=== PATIENT | male | born 1930 | race Caucasian/White ===

== ENCOUNTER 2016-07-18 09:44 | Inpatient (IN) | payer MEDICARE ==
[2016-07-18] MEDS ORDERED: POTASSIUM CHLO10 ME2 PO (09:55)
[2016-07-18] MEDS ORDERED: ZOCOR20 M1 PO (09:55)
[2016-07-18] MEDS ORDERED: TOPROL XL50 M1 PO (09:55)
[2016-07-18] MEDS ORDERED: LASIX40 M1 PO ×2 (09:55→10:53)
[2016-07-18] MEDS ORDERED: TERAZOSIN HCL10 M1 PO (09:55)
[2016-07-18] MEDS ORDERED: PROTONIX40 M2 PO (09:56)
[2016-07-18] MEDS ORDERED: CLARITIN10 M6 PO (10:20)
[2016-07-18 10:37] LABS: ABG CO2 ARTERIAL 30 mmol/L (21-27); ARTERIAL BLD GAS O2 SATURATION 88 % (95-98); ARTERIAL BLOOD GAS PCO2 44 mmHg (32-45); ARTERIAL PO2 54 mmHg (70-100); BICARBONATE 29 mmol/L (21-28); BLOOD GAS BASE EXCESS 4 mM/L (-/+3); PH 7.43 Units (7.35-7.45)
[2016-07-18 10:41] LABS: BASO % 0.5 % (0-2); BASO ABSOLUTE COUNT 0.1 tho/cmm (0.0-0.2); EOS % 2.1 % (0-7); EOSINOPHIL ABSOLUTE COUNT 0.2 tho/cmm (0.0-0.7); HCT-HEMATOCRIT 35.5 % (36.0-53.5); HGB-HEMOGLOBIN 11.1 gm/dl (13.5-17.0); IMMATURE GRANULOCYTES ABSOLUTE 0.04 tho/cmm (0-0.03); IMMATURE GRANULOCYTES PERCENT 0.4 % (0-0.3); LYMPH % 6.8 % (20-45); LYMPH ABSOLUTE COUNT 0.7 tho/cmm (0.8-4.5); MCHC MEAN CORPUSCULAR HGB CONC 31.3 % (32.0-36.0); MCV (MEAN CELL VOLUME) 95.9 fl (82.0-96.0); MEAN PLATELET VOLUME 9.5 cmc (9.4-12.4); MONO % 10.5 % (0-12); NEUTROPHIL ABSOLUTE COUNT 7.9 tho/cmm (1.6-8.0); NEUTROPHIL-AUTOMATED 7.9 tho/cmm (1.6-8.0); NEUTROPHILS % 79.7 % (40-80); PLATELET COUNT 206 tho/cmm (150-450); WHITE BLOOD COUNT 9.9 tho/cmm (4.0-10.0)
[2016-07-18] MEDS ORDERED: ONE DAILY COMP1 EAC1 PO (10:54)
[2016-07-18] MEDS ORDERED: URECHOLINE25 M2 PO (10:54)
[2016-07-18] MEDS ORDERED: ASPIR 8181 M1 PO (10:56)
[2016-07-18] MEDS ORDERED: FLONASE ALLERG9.9 ML (10:56)
[2016-07-18] MEDS ORDERED: METAMUCIL660 GM PO (11:00)
[2016-07-18 11:05] LABS: ALB/GLOB RATIO 0.9 (0.8-2.0); ALBUMIN 3.3 g/dl (3.5-5.0); ALKALINE PHOSPHATASE 74 U/L (33-138); ALT/SGPT 18 U/L (12-78); ANION GAP 12 mmol/L (0-20); AST/SGOT 25 U/L (10-40); BILIRUBIN,TOTAL 0.7 mg/dl (0.0-1.5); BLOOD UREA NITROGEN 21 mg/dl (6-24); CALCIUM 8.3 mg/dl (8.5-10.5); CARBON DIOXIDE-VENOUS 30 mmol/L (22-32); CHLORIDE 104 mmol/l (96-110); CREATININE 1.45 mg/dl (0.60-1.30); GLUCOSE 115 mg/dL (70-110); POTASSIUM 3.8 mmol/L (3.7-5.1); SODIUM 142 mmol/L (135-145); eGFR VALUE FOR BLACK 56 mL/Min
[2016-07-18 11:42] LABS: PROCALCITONIN 0.08 ng/ml (0.05-0.09)
[2016-07-18 11:50] LABS: URINE BILIRUBIN NEGATIVE (NEG); URINE BLOOD MODERATE (NEG); URINE GLUCOSE (UA) NEGATIVE (NEG); URINE KETONE NEGATIVE (NEG); URINE LEUKOCYTE ESTERASE NEGATIVE (NEG); URINE NITRITE NEGATIVE (NEG)
[2016-07-18 11:58] LABS: URINE APPEARANCE CLEAR; URINE COLOR YELLOW; URINE EPITHELIAL CELLS 0 /[HPF] (0-10); URINE MUCUS 3+; URINE PROT SULFOSALICYLIC ACID NEGATIVE (NEG); URINE WBC 0-4 /[HPF] (0-5)
[2016-07-19 05:00] LABS: BASO % 0.2 % (0-2); HCT-HEMATOCRIT 35.3 % (36.0-53.5); HGB-HEMOGLOBIN 11.3 gm/dl (13.5-17.0); IMMATURE GRANULOCYTES ABSOLUTE 0.01 tho/cmm (0-0.03); IMMATURE GRANULOCYTES PERCENT 0.2 % (0-0.3); LYMPH ABSOLUTE COUNT 0.4 tho/cmm (0.8-4.5); MCH (MEAN CORPUSCULAR HGB) 30.6 pg (28.0-32.0); MCV (MEAN CELL VOLUME) 95.7 fl (82.0-96.0); MEAN PLATELET VOLUME 9.7 cmc (9.4-12.4); MONO % 1.4 % (0-12); MONOCYTE ABSOLUTE COUNT 0.1 tho/cmm (0.0-1.2); NEUTROPHILS % 92.2 % (40-80); PLATELET COUNT 205 tho/cmm (150-450); RED BLOOD COUNT 3.69 mil/cmm (4.40-5.70); RED CELL DISTRIBUTION WIDTH 13.9 % (12.4-16.4); WHITE BLOOD COUNT 6.5 tho/cmm (4.0-10.0)
[2016-07-19 05:23] LABS: ANION GAP 12 mmol/L (0-20); BLOOD UREA NITROGEN 21 mg/dl (6-24); CALCIUM 8.6 mg/dl (8.5-10.5); CARBON DIOXIDE-VENOUS 28 mmol/L (22-32); CHLORIDE 106 mmol/l (96-110); CREATININE 1.49 mg/dl (0.60-1.30); GLUCOSE 169 mg/dL (70-110); SODIUM 142 mmol/L (135-145); eGFR VALUE FOR BLACK 54 mL/Min
[2016-07-19 05:25] LABS: POTASSIUM 4.3 mmol/L (3.7-5.1)
[2016-07-20 06:58] LABS: ANION GAP 13 mmol/L (0-20); CALCIUM 8.5 mg/dl (8.5-10.5); CARBON DIOXIDE-VENOUS 27 mmol/L (22-32); CHLORIDE 107 mmol/l (96-110); CREATININE 1.53 mg/dl (0.60-1.30); GLUCOSE 137 mg/dL (70-110); POTASSIUM 3.7 mmol/L (3.7-5.1); SODIUM 143 mmol/L (135-145); eGFR VALUE FOR BLACK 53 mL/Min
[2016-07-20 07:08] LABS: BLOOD UREA NITROGEN 32 mg/dl (6-24)
[2016-07-21 06:34] LABS: CHLORIDE 106 mmol/l (96-110); POTASSIUM 3.3 mmol/L (3.7-5.1); SODIUM 143 mmol/L (135-145)
[2016-07-21 06:38] LABS: ANION GAP 12 mmol/L (0-20); BLOOD UREA NITROGEN 35 mg/dl (6-24); CALCIUM 8.4 mg/dl (8.5-10.5); CARBON DIOXIDE-VENOUS 28 mmol/L (22-32); CREATININE 1.35 mg/dl (0.60-1.30); GLUCOSE 113 mg/dL (70-110); eGFR VALUE FOR BLACK >60 mL/Min
[2016-07-22 05:57] LABS: ANION GAP 12 mmol/L (0-20); BLOOD UREA NITROGEN 30 mg/dl (6-24); CALCIUM 8.1 mg/dl (8.5-10.5); CARBON DIOXIDE-VENOUS 32 mmol/L (22-32); CHLORIDE 105 mmol/l (96-110); CREATININE 1.38 mg/dl (0.60-1.30); GLUCOSE 88 mg/dL (70-110); POTASSIUM 3.1 mmol/L (3.7-5.1); SODIUM 146 mmol/L (135-145); eGFR VALUE FOR BLACK 59 mL/Min
[2016-07-22] MEDS ORDERED: ZITHROMAX500 M2 PO (08:18)
[2016-07-22] MEDS ORDERED: DULERA 200 MCG/13 G1 INH (08:20)
[2016-07-22] MEDS ORDERED: TYLENOL325 M2 PO (08:20)
[2016-07-22] MEDS ORDERED: MUCINEX600 M1 PO (08:22)
[2016-07-22] MEDS ORDERED: DELTASONE20 MG PO (08:33)
[2016-07-22] MEDS ORDERED: COLACE100 M1 PO (08:33)
[2016-07-22] MEDS ORDERED: MELATONIN PO (08:34)
[2016-07-22] MEDS ORDERED: NYSTATIN100000 UNI SSW (11:52)
[2016-07-22] MEDS ORDERED: DULERA 200 MCG/13 G1 AERO NEB (11:53)
[2016-07-22] MEDS ORDERED: PROVENTIL HFA6.7 G1 INH (11:54)
[2016-07-22] MEDS ORDERED: CLARITIN10 M6 PO (11:56)
[2016-07-22] MEDS ORDERED: COMBIVENT RESPIM4 G1 INH (11:56)
[2016-07-22] MEDS ORDERED: FLONASE ALLERG9.9 ML (12:02)
== END 2016-07-22 17:05 | DRG 291 ==
LOC: EDMED 09:44 → EMR2 16:01 → 5WD 18:18
PROVIDERS: Emergency Medicine; Internal Medicine; Internal Medicine Critical Care Medicine; ADMIT Hospitalist
DX: I13.0 Hypertensive heart and chronic kidney disease with heart failure and stage 1 through stage 4 chronic kidney disease, or unspecified chronic kidney disease (principal); J96.01 Acute respiratory failure with hypoxia; N17.9 Acute kidney failure, unspecified; J90 Pleural effusion, not elsewhere classified; J96.02 Acute respiratory failure with hypercapnia; J44.1 Chronic obstructive pulmonary disease with (acute) exacerbation; B37.0 Candidal stomatitis; Z95.1 Presence of aortocoronary bypass graft; I50.33 Acute on chronic diastolic (congestive) heart failure; E66.9 Obesity, unspecified; E78.5 Hyperlipidemia, unspecified; H35.30 Unspecified macular degeneration; I25.10 Atherosclerotic heart disease of native coronary artery without angina pectoris; K21.9 Gastro-esophageal reflux disease without esophagitis; N40.0 Benign prostatic hyperplasia without lower urinary tract symptoms; R91.8 Other nonspecific abnormal finding of lung field; Z68.38 Body mass index [BMI] 38.0-38.9, adult; N18.3 Chronic kidney disease, stage 3 (moderate); I87.2 Venous insufficiency (chronic) (peripheral); Z87.891 Personal history of nicotine dependence
CPT/HCPCS: J0456; J0696; J1650; J1940; J2920; J2930; J7030; J7050; J7512